=== PATIENT | female | born 1950 | race Hispanic/Latino ===

== ENCOUNTER → 2018-10-23 | Outpatient (CLI) | payer MEDICARE | END | disposition home or self-care (01) | LOC: RAH 13:23 | PROVIDERS: ATTEND Family Medicine | DX: G31.84 Mild cognitive impairment of uncertain or unknown etiology (principal) | CPT/HCPCS: 70450 ==

== ENCOUNTER 2019-10-04 15:28 | Inpatient (IN) | payer MEDICARE ==
[~2019-10-04] VITALS: Ht 152.4 cm; Wt 68.6 kg
[2019-10-04 16:35] LABS: BASOPHILS % (AUTO) 0.2 % (0.0-5.0); LYMPHOCYTES % (AUTO) 13.9 % (21.0-51.0); MEAN CORPUSCULAR HEMOGLOBIN 29.7 pg (27.0-33.0); MEAN CORPUSCULAR HGB CONC 34.2 g/dL (32.0-36.0); MONOCYTES % (AUTO) 9.5 % (3.0-13.0); PLATELET COUNT (AUTO) 233 K/uL (130-400); RED BLOOD CELL COUNT(AUTO) 4.37 MIL/uL (4.00-5.50); RED CELL DISTRIBUTION WIDTH 11.9 % (11.0-15.5); WHITE BLOOD COUNT (AUTO) 5.3 K/uL (4.8-10.8)
[2019-10-04 16:57] LABS: ALBUMIN 3.1 g/dL (3.5-5.0); BILIRUBIN,TOTAL 0.6 mg/dL (0.2-1.0); TOTAL PROTEIN, SERUM 7.6 g/dL (6.0-8.3)
[2019-10-04 17:07] LABS: POTASSIUM 3.7 mmol/L (3.5-5.1)
[2019-10-04 17:37] LABS: APPEARANCE,URINE Cloudy (CLEAR); BILIRUBIN,URINE Negative (NEGATIVE); COLOR,URINE Dark Yellow (YELLOW); GLUCOSE, URINE (UA) Negative (NEGATIVE); KETONES,URINE 40 mg/dL (NEGATIVE); LEUKOCYTE ESTERASE ,URINE Trace (NEGATIVE); NITRATE,URINE Negative (NEGATIVE); OCCULT BLOOD,URINE Negative (NEGATIVE); PH,URINE 5.5 (5.0-8.0); PROTEIN,URINE POS 2+ mg/dL (NEGATIVE)
[2019-10-04 18:19] LABS: BACTERIA,URINE Few /HPF (None Seen); MUCUS,URINE Few LPF (None Seen); SQUAMOUS EPITHELIAL CELL,UR Moderate /HPF (0-2)
[2019-10-04] MEDS ORDERED: ASPIRIN 325MG EC TAB 325 MG TABLET.DR PO SCH (19:00)
[2019-10-04] MEDS ORDERED: ASPIRIN 325 MG TABLET ONE (19:19)
[2019-10-04 20:02] LABS: INR 0.88 (0.85-1.15); PROTHROMBIN TIME 9.5 SEC (9.6-11.6)
[2019-10-04] MEDS ORDERED: SODIUM CHLORIDE 0.9% 1000ML 1,000 ML IV SCH (20:07)
[2019-10-04 20:12] LABS: CRP QUANTITATIVE 47.6 mg/L (0.00-9.0)
[2019-10-04] MEDS ORDERED: ONDANSETRON HCL 4 MG/2 ML VIAL IV PRN (20:15)
[2019-10-04] MEDS ORDERED: ACETAMINOPHEN 325 MG TAB PO PRN (20:15)
[2019-10-04] MEDS ORDERED: DIPHENHYDRAMINE HCL 25 MG CAPSULE PO PRN (20:15)
[2019-10-04] MEDS ORDERED: NITROGLYCERIN 0.4 MG SL TAB SL PRN (20:15)
[2019-10-04 20:44] LABS: CREATINE KINASE, TOTAL 111 U/L (21-232); MYOGLOBIN 75 ng/mL (10-92); TROPONIN I < 0.04 ng/mL (0.00-0.06)
[2019-10-04] MEDS ORDERED: IOHEXOL-350 75 ML VIAL IV ONE (21:51)
[2019-10-04] MEDS ORDERED: FAMOTIDINE/PF 20 MG/2 ML VIAL IV ONE (21:54)
[2019-10-05 00:43] LABS: CREATINE KINASE, TOTAL 157 U/L (21-232); TROPONIN I < 0.04 ng/mL (0.00-0.06)
[2019-10-05 01:22] LABS: MYOGLOBIN 79 ng/mL (10-92)
[2019-10-05] MEDS ORDERED: AZITHROMYCIN 500MG+NS 250ML 250 ML IV ONE (03:06)
[2019-10-05 06:18] LABS: HEMATOCRIT 34.2 % (36-48); MEAN CORPUSCULAR HEMOGLOBIN 29.8 pg (27.0-33.0); MEAN CORPUSCULAR HGB CONC 34.2 g/dL (32.0-36.0); MEAN CORPUSCULAR VOLUME 87.2 fL (79-99); PLATELET COUNT (AUTO) 237 K/uL (130-400); RED BLOOD CELL COUNT(AUTO) 3.92 MIL/uL (4.00-5.50); RED CELL DISTRIBUTION WIDTH 11.9 % (11.0-15.5)
[2019-10-05 06:42] LABS: BAND NEUTROPHILS % (MANUAL) 8 % (0-2); LYMPHOCYTES % (MANUAL) 28 % (22-44); MONOCYTES % (MANUAL) 8 % (2-9); SEGMENTED NEUTROPHILS % 56 % (40-70)
[2019-10-05 06:43] LABS: MAN.DIFF COMMENT-IMPRESSION MANUAL DIFFERENTIAL; PLATELET MORPHOLOGY COMMENT ADEQUATE
[2019-10-05 06:50] LABS: CHOLESTEROL 113 mg/dL (<200); HDL CHOLESTEROL 38 mg/dL (35-85); LDL DIRECT 46 mg/dL (0-99); TRIGLYCERIDES 125 mg/dL (30-200)
[2019-10-05 06:54] LABS: ALBUMIN 2.7 g/dL (3.5-5.0); CREATININE 0.9 mg/dL (0.5-1.5); CRP QUANTITATIVE 33.9 mg/L (0.00-9.0); MAGNESIUM 2.4 mg/dL (1.80-2.40); POTASSIUM 3.5 mmol/L (3.5-5.1); TOTAL PROTEIN, SERUM 6.3 g/dL (6.0-8.3)
[2019-10-05 07:26] LABS: BILIRUBIN,TOTAL 0.3 mg/dL (0.2-1.0)
[2019-10-05] MEDS: FAMOTIDINE 20MG TAB 20 MG TAB PO SCH (09:00)
[2019-10-05] MEDS: ASPIRIN 81MG TAB.CHEW PO SCH (09:00)
[2019-10-05] MEDS: ENOXAPARIN SODIUM 30 MG/0.3 ML SQ SCH (09:00)
[2019-10-05] MEDS ORDERED: ENOXAPARIN SODIUM 30 MG/0.3 ML SQ ONE (09:42)
[2019-10-05] MEDS ORDERED: ASPIRIN 81MG TAB.CHEW ONE (09:42)
[2019-10-05] MEDS ORDERED: FAMOTIDINE/PF 20 MG/2 ML VIAL IV ONE (09:42)
[2019-10-05] MEDS ORDERED: ALBUTEROL INHALER 90MCG/INH IH ONE (13:28)
--- NOTE | 2019-10-05 16:12 | NUR ---
INITIAL SW spoke with patient's daughter, Mignon Collins, [phone]. Patient lives with daughter. She has no home health but does have PHC with [facility] 22 hours a week. Granddaughter is provider. Patient has no DME. She needs help with ADL's and doesn't drive. PCP is Dr. Martinez. Pharmacy is [facility]. DCP is home. Addendum: 10/05/19 at 1616 by AJYCE DSOUZA SS Amended: Links added.
[2019-10-05 21:33] VITALS: BP 117/80
[2019-10-05 23:07] VITALS: BP 101/63
[2019-10-06] MEDS: AZITHROMYCIN 500MG+NS 250ML 250 ML IV SCH ×2 (03:00→05:49)
[2019-10-06 03:08] VITALS: BP 123/65
--- NOTE | 2019-10-06 04:00 | NUR ---
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
[2019-10-06] MEDS ORDERED: denies home meds (04:28)
--- NOTE | 2019-10-06 04:55 | NUR ---
AGUSTIN ROTATING FIELD ASSEMBLER RETURNED phone call informed of positive blood cultures gram positive cocci anerobic 2/2 sets
[2019-10-06] MEDS: ZOSYN 3.375GM+NS 50ML 50 ML IV SCH ×3 (05:47→20:32)
[2019-10-06 05:57] LABS: BASOPHILS % (AUTO) 0.2 % (0.0-5.0); EOSINOPHILS % (AUTO) 0.2 % (0.0-8.0); HEMATOCRIT 34.3 % (36-48); LYMPHOCYTES % (AUTO) 21.9 % (21.0-51.0); MEAN CORPUSCULAR HEMOGLOBIN 29.3 pg (27.0-33.0); MEAN CORPUSCULAR HGB CONC 33.5 g/dL (32.0-36.0); MEAN CORPUSCULAR VOLUME 87.3 fL (79-99); MONOCYTES % (AUTO) 9.8 % (3.0-13.0); NEUTROPHILS % (AUTO) 67.5 % (40.0-77.0); PLATELET COUNT (AUTO) 251 K/uL (130-400); RED BLOOD CELL COUNT(AUTO) 3.93 MIL/uL (4.00-5.50); RED CELL DISTRIBUTION WIDTH 11.9 % (11.0-15.5); WHITE BLOOD COUNT (AUTO) 4.6 K/uL (4.8-10.8)
[2019-10-06 06:05] LABS: CREATININE 0.7 mg/dL (0.5-1.5); CRP QUANTITATIVE 54.5 mg/L (0.00-9.0); POTASSIUM 3.4 mmol/L (3.5-5.1)
[2019-10-06 07:00] VITALS: BP 114/67
[2019-10-06] MEDS: ENOXAPARIN SODIUM 30 MG/0.3 ML SQ SCH (07:56)
[2019-10-06] MEDS: FAMOTIDINE 20MG TAB 20 MG TAB PO SCH (07:56)
[2019-10-06] MEDS: ASPIRIN 81MG TAB.CHEW PO SCH (07:56)
[2019-10-06] MEDS: ACETAMINOPHEN 325 MG TAB PO PRN ×2 (07:58→20:33)
[2019-10-06] MEDS ORDERED: POTASSIUM CHLORIDE 20 MEQ ERTAB PO SCH (09:15)
[2019-10-06 11:00] VITALS: BP 108/53
[2019-10-06] MEDS ORDERED: POTASSIUM CHLORIDE 20 MEQ ERTAB PO ONE (15:49)
[2019-10-06 16:00] VITALS: BP 107/61
[2019-10-06] MEDS ORDERED: GUAIFENESIN-DM 200/20 MG 10 ML PO PRN (16:45)
[2019-10-06 19:18] VITALS: BP_SYST 123
[2019-10-07] VITALS (7 sets, daily range): BP systolic 99–140; BP diastolic 56–77
[2019-10-07] MEDS: ZOSYN 3.375GM+NS 50ML 50 ML IV SCH ×3 (03:45→20:09)
[2019-10-07] MEDS: AZITHROMYCIN 500MG+NS 250ML 250 ML IV SCH (03:45)
[2019-10-07 05:11] LABS: BASOPHILS % (AUTO) 0.3 % (0.0-5.0); EOSINOPHILS % (AUTO) 1.6 % (0.0-8.0); HEMATOCRIT 34.6 % (36-48); MEAN CORPUSCULAR HGB CONC 33.8 g/dL (32.0-36.0); MEAN CORPUSCULAR VOLUME 88.7 fL (79-99); MONOCYTES % (AUTO) 5.5 % (3.0-13.0); NEUTROPHILS % (AUTO) 67.8 % (40.0-77.0); PLATELET COUNT (AUTO) 267 K/uL (130-400); RED CELL DISTRIBUTION WIDTH 11.9 % (11.0-15.5); WHITE BLOOD COUNT (AUTO) 3.8 K/uL (4.8-10.8)
[2019-10-07 05:18] LABS: CREATININE 0.7 mg/dL (0.5-1.5); CRP QUANTITATIVE 78.9 mg/L (0.00-9.0); POTASSIUM 3.7 mmol/L (3.5-5.1)
[2019-10-07] MEDS: FAMOTIDINE 20MG TAB 20 MG TAB PO SCH (08:09)
[2019-10-07] MEDS: ASPIRIN 81MG TAB.CHEW PO SCH (08:09)
[2019-10-07] MEDS: ENOXAPARIN SODIUM 30 MG/0.3 ML SQ SCH (08:09)
--- NOTE | 2019-10-07 08:30 | NUR ---
ASSESSMENT PT IS AAOX3 DENIES CP DENIES NV DENIES SOB WHILE AT REST, BREATHING PATTERN IS EVEN AND UNLABORED, ON O2 VIA NC. AM MEDS GIVEN, CALL LIGHT WITHIN REACH.
[2019-10-07] MEDS ORDERED: ENOXAPARIN SODIUM 1 MG/KG SQ SCH (09:00)
[2019-10-07] MEDS: METHYLPREDNISOLONE SOD SUCC 40MG/ML 1ML IVP SCH ×2 (09:10→20:09)
[2019-10-07] MEDS: ENOXAPARIN SODIUM 80 MG/0.8 ML SQ SCH (09:11)
--- NOTE | 2019-10-07 13:00 | NUR ---
DR Arguello AND DAVE ARDON ROUNDED
[2019-10-08] VITALS (7 sets, daily range): BP systolic 112–134; BP diastolic 62–74
[2019-10-08] MEDS: AZITHROMYCIN 500MG+NS 250ML 250 ML IV SCH (02:51)
[2019-10-08] MEDS: ZOSYN 3.375GM+NS 50ML 50 ML IV SCH ×3 (06:00→20:53)
[2019-10-08 07:20] LABS: CREATININE 0.6 mg/dL (0.5-1.5); CRP QUANTITATIVE 62.5 mg/L (0.00-9.0); POTASSIUM 3.7 mmol/L (3.5-5.1)
[2019-10-08 08:53] LABS: LYMPHOCYTES % (MANUAL) 1 % (22-44); MONOCYTES % (MANUAL) 3 % (2-9); SEGMENTED NEUTROPHILS % 96 % (40-70)
[2019-10-08 08:54] LABS: MAN.DIFF COMMENT-IMPRESSION BP; PLATELET MORPHOLOGY COMMENT ADEQUATE
[2019-10-08 08:57] LABS: HEMATOCRIT 34.8 % (36-48); MEAN CORPUSCULAR HEMOGLOBIN 29.2 pg (27.0-33.0); MEAN CORPUSCULAR HGB CONC 33.3 g/dL (32.0-36.0); MEAN CORPUSCULAR VOLUME 87.7 fL (79-99); PLATELET COUNT (AUTO) 341 K/uL (130-400); RED BLOOD CELL COUNT(AUTO) 3.97 MIL/uL (4.00-5.50); RED CELL DISTRIBUTION WIDTH 11.9 % (11.0-15.5); WHITE BLOOD COUNT (AUTO) 5.1 K/uL (4.8-10.8)
[2019-10-08] MEDS: FAMOTIDINE 20MG TAB 20 MG TAB PO SCH (09:00)
[2019-10-08] MEDS: ASPIRIN 81MG TAB.CHEW PO SCH (10:22)
[2019-10-08] MEDS: METHYLPREDNISOLONE SOD SUCC 40MG/ML 1ML IVP SCH ×2 (10:23→20:53)
[2019-10-08] MEDS: ENOXAPARIN SODIUM 80 MG/0.8 ML SQ SCH (10:24)
[2019-10-09] MEDS: AZITHROMYCIN 500MG+NS 250ML 250 ML IV SCH (04:05)
[2019-10-09 04:35] VITALS: BP 114/63
[2019-10-09 05:42] LABS: HEMATOCRIT 34.6 % (36-48); MEAN CORPUSCULAR HEMOGLOBIN 30.1 pg (27.0-33.0); MEAN CORPUSCULAR HGB CONC 34.4 g/dL (32.0-36.0); MEAN CORPUSCULAR VOLUME 87.4 fL (79-99); PLATELET COUNT (AUTO) 416 K/uL (130-400); RED BLOOD CELL COUNT(AUTO) 3.96 MIL/uL (4.00-5.50); RED CELL DISTRIBUTION WIDTH 11.8 % (11.0-15.5); WHITE BLOOD COUNT (AUTO) 7.7 K/uL (4.8-10.8)
[2019-10-09] MEDS: ZOSYN 3.375GM+NS 50ML 50 ML IV SCH ×3 (05:52→21:50)
[2019-10-09 08:00] VITALS: BP 130/74
[2019-10-09 08:45] LABS: BAND NEUTROPHILS % (MANUAL) 14 % (0-2); LYMPHOCYTES % (MANUAL) 16 % (22-44); MAN.DIFF COMMENT-IMPRESSION MANUAL DIFFERENTIAL; MONOCYTES % (MANUAL) 4 % (2-9); SEGMENTED NEUTROPHILS % 66 % (40-70)
[2019-10-09 08:46] LABS: PLATELET MORPHOLOGY COMMENT ADEQUATE
[2019-10-09] MEDS: METHYLPREDNISOLONE SOD SUCC 40MG/ML 1ML IVP SCH ×2 (10:28→21:50)
[2019-10-09] MEDS: ASPIRIN 81MG TAB.CHEW PO SCH (10:28)
[2019-10-09] MEDS: ENOXAPARIN SODIUM 80 MG/0.8 ML SQ SCH (10:28)
[2019-10-09] MEDS: FAMOTIDINE 20MG TAB 20 MG TAB PO SCH (10:28)
[2019-10-09 12:00] VITALS: BP 127/60
--- NOTE | 2019-10-09 13:29 | NUR ---
No covid test pending. No pulmonary MD consult at this time. Called MD to inform, MD did not answer waiting on return call.
[2019-10-09 15:30] VITALS: BP 127/71
[2019-10-09 20:00] VITALS: BP 135/78
[2019-10-10] VITALS: BP 135/75
[2019-10-10 04:00] VITALS: BP 131/70
[2019-10-10] MEDS: AZITHROMYCIN 500MG+NS 250ML 250 ML IV SCH (04:08)
[2019-10-10] MEDS: ZOSYN 3.375GM+NS 50ML 50 ML IV SCH (04:58)
[2019-10-10 08:30] VITALS: BP 133/72
[2019-10-10 09:55] LABS: BASOPHILS % (AUTO) 0.2 % (0.0-5.0); HEMATOCRIT 36.3 % (36-48); LYMPHOCYTES % (AUTO) 7.3 % (21.0-51.0); MEAN CORPUSCULAR HEMOGLOBIN 29.5 pg (27.0-33.0); MEAN CORPUSCULAR HGB CONC 33.6 g/dL (32.0-36.0); MEAN CORPUSCULAR VOLUME 87.7 fL (79-99); MONOCYTES % (AUTO) 4.2 % (3.0-13.0); NEUTROPHILS % (AUTO) 87.1 % (40.0-77.0); PLATELET COUNT (AUTO) 428 K/uL (130-400); RED BLOOD CELL COUNT(AUTO) 4.14 MIL/uL (4.00-5.50); RED CELL DISTRIBUTION WIDTH 12.2 % (11.0-15.5); WHITE BLOOD COUNT (AUTO) 5.9 K/uL (4.8-10.8)
[2019-10-10] MEDS: METHYLPREDNISOLONE SOD SUCC 40MG/ML 1ML IVP SCH (10:58)
[2019-10-10] MEDS: ASPIRIN 81MG TAB.CHEW PO SCH (10:59)
[2019-10-10] MEDS: FAMOTIDINE 20MG TAB 20 MG TAB PO SCH (10:59)
[2019-10-10] MEDS: ENOXAPARIN SODIUM 80 MG/0.8 ML SQ SCH (10:59)
--- NOTE | 2019-10-10 13:34 | NUR ---
Pt discharged from unit. Provided discharge instructions to patients daughter Mignon over the phone. Educated on discharge medication and pt daughter verbalized understanding. Provided pt with next dose medication for discharge meds and pt daughter verbalized understanding. Educated for pt to quarantine x14 days and to wear mask at all times while in home with others. Gave education information for SOB, pneumonia, and COVID. IV and tele removed. Pt transported downstairs via wheelchair. All belongings returned to pt. No s/s of distress noted upon exit from unit.
== END 2019-10-10 13:30 | disposition home or self-care (01) | DRG 177 ==
LOC: EDH 15:28 → EDHIP 18:55 → 2AH 10-05 20:50
PROVIDERS: ADMIT Family Medicine; ATTEND Family Medicine
DX: U07.1 COVID-19 (principal); J12.89 Other viral pneumonia; E87.1 Hypo-osmolality and hyponatremia; K44.9 Diaphragmatic hernia without obstruction or gangrene; I51.7 Cardiomegaly; K80.20 Calculus of gallbladder without cholecystitis without obstruction; R79.89 Other specified abnormal findings of blood chemistry; R82.71 Bacteriuria; M47.815 Spondylosis without myelopathy or radiculopathy, thoracolumbar region
CPT/HCPCS: 36415; 71045; 71275; 74176; 80048; 80053; 80061; 81001; 82550; 82728; 83615; 83735; 83874; 84145; 84478; 84484; 85025; 85378; 85384; 85610; 86140; 87040; 87071; 87077; 87088; 87186; 87205; 87804; 93005; 93970; 94760; G0378; J0456; J1650; J2543; J2920; J3490; J7030; Q9967; U0003

== ENCOUNTER 2020-03-20 15:46 | Emergency (ER) | payer MEDICARE ==
[~2020-03-20 15:46] MED LIST: denies home meds
== END 2020-03-20 17:02 | disposition home or self-care (01) ==
LOC: EDH 15:46
DX: R05 Cough (principal); R06.02 Shortness of breath; Z20.828 Contact with and (suspected) exposure to other viral communicable diseases
CPT/HCPCS: 71045; 87804; 93005

== ENCOUNTER 2022-12-18 12:33 | Emergency (ER) | payer MEDICARE ==
[~2022-12-18] VITALS: Ht 152.4 cm; Wt 65.8 kg
[~2022-12-18 12:33] MED LIST changes: +AMOX-429 PO; +DICY20TA3 PO
[2022-12-18 13:29] VITALS: BP 163/71; PULSE 71; RESP 16; O2SAT 100
[2022-12-18] MEDS ORDERED: CEPH500T PO (15:54)
== END 2022-12-18 16:14 | disposition home or self-care (01) ==
LOC: EDH 12:33
DX: L60.2 Onychogryphosis (principal); L03.032 Cellulitis of left toe; E03.9 Hypothyroidism, unspecified; Z79.899 Other long term (current) drug therapy

== ENCOUNTER 2024-11-06 15:27 | Emergency (ER) | payer MEDICARE ==
[~2024-11-06] VITALS: Ht 149.9 cm; Wt 54.0 kg
[~2024-11-06 15:27] MED LIST changes: +CEPH500T PO
--- NOTE | 2024-11-06 15:50 | EKG ---
[facility] Test Date: 2024-11-06 Test Time: 15:46:52 Pat Name: GELY SHANNON Department: ED Room: Gender: F Hvac R Instructor: [id number] : 1950 Requested By: LORENZO CESPEDES Order Number: [id number] Reading MD: Bradley Carrasco Measurements Intervals [place] Rate: 55 P: 37 TX: 193 QRS: 0 QRSD: 94 T: 53 QT: 412 QTc: 393 Interpretive Statements Sinus rhythm Low voltage, extremity leads Compared to ECG 03/20/2020 15:44:52 Low QRS voltage now present Electronically Signed On 11-09-2024 10:45:28 CDT by Bradley Carrasco Please click the below link to view image of tracing.
--- NOTE | 2024-11-06 16:10 | HMCIMG ---
EXAM: CR Chest, 1 View. CLINICAL HISTORY: fluid overload COMPARISON: X-ray chest 03/20/2020 FINDINGS: LUNGS: The lungs show no infiltrate or other acute finding. PLEURAL SPACES: No evidence of pleural effusion or pneumothorax. MEDIASTINUM: The cardiomediastinal silhouette is within normal limits. BONES: No aggressive appearing osseous lesion seen. IMPRESSION: No acute cardiopulmonary pathology is evident. No significant change /[place]
[2024-11-06 16:11] LABS: IMMATURE GRANULOCYTE ABSOLUTE 0.02 K/uL (0-1); NUCLEATED RED BLOOD CELLS 0.0 % (0.0-0.19); PLATELET COUNT (AUTO) 228 K/uL (130-400); RED BLOOD CELL COUNT(AUTO) 3.69 MIL/uL (4.00-5.50); RED CELL DISTRIBUTION WIDTH 13.2 % (11.0-15.5); WHITE BLOOD COUNT (AUTO) 5.6 K/uL (4.8-10.8)
[2024-11-06 16:24] LABS: CREATININE 0.6 mg/dL (0.5-1.0); GLOMERULAR FILTR. RATE CALC 95.0 mL/min (>90); GLUCOSE,RANDOM 100.0 mg/dL (70-105); SODIUM SERUM 142.0 mmol/L (136-145); UREA NITROGEN, BLOOD 16.0 mg/dL (7-18)
[2024-11-06 16:25] LABS: INR <= 0.93 (0.85-1.15)
[2024-11-06 16:31] LABS: ASPARTATE AMINOTRANSFERASE 12.0 U/L (10-37); CREATINE KINASE, TOTAL 43.0 U/L (21-232); TOTAL PROTEIN, SERUM 5.7 g/dL (6.0-8.3)
--- NOTE | 2024-11-06 17:16 | HMCIMG ---
Exam: Ultrasound deep veins right lower extremity. History: Leg pain and swelling Comparison: Bilateral ultrasound venous exam 10/04/2019. Findings: Cain scale and color/doppler static images of the deep veins of the right lower extremity were submitted without a comparison exam. There is normal response to compression and augmentation maneuvers throughout the visualized deep veins of the right lower extremity to include the: common femoral vein, superficial femoral vein, popliteal vein, and posterior tibial vein Patent blood flow was detected with color/doppler imaging. No fluid collection or other abnormality is delineated. Impression: There is no right lower extremity deep venous thrombus formation. . /[place]
[2024-11-06 17:17] LABS: APPEARANCE,URINE CLEAR (CLEAR); GLUCOSE, URINE (UA) NEGATIVE (NEGATIVE); LEUKOCYTE ESTERASE ,URINE 500 Leu/uL (NEGATIVE); NITRATE,URINE NEGATIVE (NEGATIVE); OCCULT BLOOD,URINE NEGATIVE (NEGATIVE)
[2024-11-06 17:21] LABS: ADD UA MICROSCOPIC YES
[2024-11-06 17:23] LABS: SQUAMOUS EPITHELIAL CELL,UR RARE /HPF (0-2)
--- NOTE | 2024-11-06 18:22 | ERN ---
General Chief Complaint: LOWER EXTREMITY EDEMA Stated Complaint: BILATERAL LOWER EXTREMITY EDEMA Time Seen by MD: 15:30 History of Present Illness Initial Comments 73-year-old female who presents for left lower leg swelling. She reports that she has noticed over the last two days that are left leg has been swelling. He also has some mild swelling on the right but it is more in the left. She denies any cough, dyspnea, paroxysmal nocturnal dyspnea, abdominal pain or swelling, urinary changes, or any other symptom. He has never had this before. Allergies: Coded Allergies: No Known Drug Allergies (Verified Allergy, Unknown, 10/04/19) Home Meds Active Scripts Cephalexin (Cephalexin) 500 Mg Tablet, 500 MG PO [id number] for 7 Days, #28 TAB Prov:CECIL HERNANDEZ NP 12/18/22 Dicyclomine HCl (Dicyclomine HCl) 20 Mg Tablet, 20 MG PO QIDP PRN for ABDOMINAL PAIN, #20 TAB Prov:CLYDE ANTOINE MD 09/20/20 Amoxicillin/Potassium Clav (Augmentin 875-125 Tablet) 1 Each Tablet, 1 EACH PO BIDMEALS, #20 TAB Prov:CLYDE ANTOINE MD 09/20/20 Reported Medications [denies home meds] No Conflict Check 10/06/19 Past Medical History Past Medical History: Hypothyroid, Other Medical History Other: FATTY LIVER Past Surgical History: None Social History Social History: Lives with family ROS Dictation CONSTITUTIONAL: No chills, no fever, no weakness, no diaphoresis, no malaise. HEAD/FACE: No signs of trauma. EENT: No eye pain, no blurred vision, no tearing, no double vision, no ear pain, no ear discharge, no nose pain, no nasal congestion, no throat pain, no throat swelling, no mouth pain. RESPIRATORY: No cough, no orthopnea, no SOB, no stridor, no wheezing. CARDIOVASCULAR: No chest pain, no edema, no palpitations, no syncope. GASTROINTESTINAL/ABDOMINAL: No abdominal pain, no constipation, no diarrhea, no nausea, no vomiting. GENITOURINARY: No abnormal discharge, no dysuria, no frequent urination, no hematuria. No complaints of pain in the genitals. MUSCULOSKELETAL: Swelling INTEGUMENTARY: No change in color, no change in hair/nails, no dryness, no lesion, no lumps, no rash. NEUROLOGICAL/PSYCH: No anxiety, not depressed, no emotional problem, no headache, no numbness, no pre-existing deficit, no history of seizures, no tremors, no weakness. HEMATOLOGIC/LYMPHATIC: Not anemic, no history of blood clots, no apparent bleeding, no bruising, glands not swollen. All Systems Negative, Except as Noted. Physical Exam Physical Exam Dictation VITAL SIGNS: Reviewed. GENERAL APPEARANCE: Alert, oriented x3, no acute distress. HEAD AND FACE: Non-traumatic. EYES: PERRL, pink conjunctivas, eyelid no trauma, anterior chamber clear. EARS: Pinnas intact and no signs of trauma or erythema. Ear canals clear and no discharge. TMs no erythema. NOSE: No discharge, no bleeding. OROPHARYNX: Mouth normal, teeth no caries, tongue pink. Pharynx clear, no erythema. Tonsils no exudates, no abscesses noted. Mucous membrane moist. NECK: Supple, non-tender, no thyromegaly, no masses, no JVD, no bruits. BREAST: Deferred. CHEST: No tenderness, no crepitus, no paradoxical movement, no retractions. LUNGS: Clear, well-ventilated, symmetric, no rales, no wheezing, no rhonchi, no stridor, good breath sounds bilaterally. HEART: Regular rate, regular rhythm, no murmur, no gallops. VASCULAR: No peripheral edema. ABDOMEN: Soft, positive bowel sounds, nondistended, no guarding, nontender, no rebound, no masses no hepatomegaly, no splenomegaly, no Butts's sign, no hernias. RECTAL: Deferred. GENITAL: Deferred. NEUROLOGICAL: Normal speech, gross motor function intact, gross sensory function intact. MUSCULOSKELETAL: Neck nontender, full range of motion, back nontender, full range of motion. EXTREMITIES: Nontender, full range of motion. SKIN: Color pink, dry, no turgor, no rash, no lacerations, no abrasions, no contusions. LYMPHATICS: Deferred. Results Laboratory and Microbiology Lab and Micro Result Laboratory Tests Test 11/06/24 15:39 11/06/24 17:08 White Blood Count 5.6 K/uL (4.8-10.8) Red Blood Count 3.69 MIL/uL (4.00-5.50) L Hemoglobin 11.4 g/dL (12.0-16.0) L Hematocrit 34.3 % (36-48) L Mean Corpuscular Volume 93.0 fL (79-99) Mean Corpuscular Hemoglobin 30.9 pg (27.0-33.0) Mean Corpuscular Hemoglobin Concent 33.2 g/dL (32.0-36.0) Red Cell Distribution Width 13.2 % (11.0-15.5) Platelet Count 228 K/uL (130-400) Mean Platelet Volume 9.6 fL (7.5-10.5) Immature Granulocyte % (Auto) 0.4 % (0-1) Neutrophils (%) (Auto) 61.9 % (40.0-77.0) Lymphocytes (%) (Auto) 28.8 % (21.0-51.0) Monocytes (%) (Auto) 7.3 % (3.0-13.0) Eosinophils (%) (Auto) 1.2 % (0.0-8.0) Basophils (%) (Auto) 0.4 % (0.0-5.0) Neutrophils # (Auto) 3.5 K/uL (1.8-7.7) Lymphocytes # (Auto) 1.6 K/uL (1.0-4.8) Monocytes # (Auto) 0.4 K/uL (0.1-1.0) Eosinophils # (Auto) 0.07 K/uL (0.00-0.70) Basophils # (Auto) 0.02 K/uL (0.00-0.20) Absolute Immature Granulocyte (auto 0.02 K/uL (0-1) Nucleated Red Blood Cells 0.0 % (0.0-0.19) Prothrombin Time 9.9 SEC (9.6-11.6) Prothromb Time International Ratio <= 0.93 (0.85-1.15) Activated Partial Thromboplast Time 24.6 SEC (26.3-35.5) L Sodium Level 142 mmol/L (136-145) Potassium Level 4.0 mmol/L (3.5-5.1) Chloride Level 109 mmol/L (101-111) Carbon Dioxide Level 29 mmol/L (21-32) Blood Urea Nitrogen 16 mg/dL (7-18) Creatinine 0.6 mg/dL (0.5-1.0) Glomerular Filtration Rate Calc 95 mL/min (>90) Random Glucose 100 mg/dL (70-105) Total Calcium 8.2 mg/dL (8.5-10.1) L Magnesium Level 2.00 mg/dL (1.80-2.40) Total Bilirubin 0.2 mg/dL (0.2-1.0) Direct Bilirubin 0.1 mg/dL (0.0-0.3) Aspartate Amino Transf (AST/SGOT) 12 U/L (10-37) Alanine Aminotransferase (ALT/SGPT) 16 U/L (12-78) Alkaline Phosphatase 116 U/L (50-136) Total Creatine Kinase 43 U/L (21-232) # Troponin I High Sensitivity 11.9 ng/L (4-50) B-Type Natriuretic Peptide 75 pg/mL (0-100) Total Protein 5.7 g/dL (6.0-8.3) L Albumin 3.0 g/dL (3.5-5.0) L Urine Color LIGHT-YELLOW (YELLOW) Urine Appearance CLEAR (CLEAR) Urine pH 5.5 (5.0-8.0) Urine Specific [place] 1.023 (1.001-1.031) Urine Protein NEGATIVE mg/dL (NEGATIVE) Urine Glucose (UA) NEGATIVE mg/dL (NEGATIVE) Urine Ketones NEGATIVE mg/dL (NEGATIVE) Urine Occult Blood NEGATIVE (NEGATIVE) Urine Nitrate NEGATIVE (NEGATIVE) Urine Bilirubin NEGATIVE mg/dL (NEGATIVE) Urine Urobilinogen 0.2 mg/dL (0.2-1.0) Urine Leukocyte Esterase 500 [place]/uL (NEGATIVE) H Urine RBC 0-1 /HPF (0-1) Urine WBC 11-25 /HPF (0-1) H Urine Squamous Epithelial Cells RARE /HPF (0-2) Urine Bacteria RARE /HPF (None Seen) MDM CC: lower extremity edema Historian: patient Comorbidities: Hypothyroid, fatty liver Limitations by social determinants of health: None Differential diagnosis: Heart failure, liver disease, kidney disease, benign swelling, other. Vital signs are stable, clinical exam shows a little bit of swelling 2+ on the left 1+ on the right lung sounds are clear abdomen soft nontender nondistended. Labs (independently ordered and interpreted by me): No leukocytosis, mild normocytic anemia hemoglobin 11.4. Coags are stable. Metabolic panel is unre markable, magnesium stable, liver enzymes are stable, CK is stable, troponin stable, BNP normal, total protein decreased 5.7 albumin 3.0. Urinalysis shows normal specific gravity, no protein. There are some leuk esterase but she is currently asymptomatic unlikely related to her symptoms The EKG shows a sinus rhythm rate of 55 with a normal axis good R-wave progression intervals are stable no STEMI. Independently interpreted by me. DVT study per radiology read shows no signs of DVT Chest x-ray (independently interpreted by me): No cardiomegaly pleural effusions or focal infiltrates. Differential diagnosis includes chronic venous insufficiency, hypoalbuminemia, possibly a medication side effect or any of the other obstructive process. I do not see any life threats at this time patient can be worked up as an outpatient. I will recommend the patient wears compression stockings encourage daily leg elevation daily monitor sodium and protein intake. Do not see any indication for diuretics. No indication for further treatment or studies at this time. Family agrees with the plan. ED Course Orders Procedure Category Date Status Time Cardiac Panel LAB 11/06/24 Complete 15:37 Cbc With Differential LAB 11/06/24 Complete 15:37 Basic Metabolic Panel LAB 11/06/24 Complete 15:37 Magnesium LAB 11/06/24 Complete 15:37 Prothrombin Time With LAB 11/06/24 Complete INR 15:37 Partial LAB 11/06/24 Complete Thromboplastin Time 15:37 Urinalysis Profile LAB 11/06/24 Complete 15:37 Hepatic Function Panel LAB 11/06/24 Complete 15:37 B-Type Natriuretic LAB 11/06/24 Complete Peptide 15:37 Chest 1vw RAD 11/06/24 Resulted 15:37 12 Lead Ekg Tracing- EKG 11/06/24 Complete Technical 15:37 Us Venous Doppler US 11/06/24 Resulted Unilateral 16:27 Culture Urine HORACE 11/06/24 Logged 17:22 Vital Signs Date Time Temp Pulse Resp B/P (MAP) Pulse Ox O2 Delivery O2 Flow Rate FiO2 11/06/24 17:44 62 18 132/59 99 Room Air* 0 11/06/24 16:30 98.6 48 18 127/57 99 Room Air* 0 21 11/06/24 15:36 57 18 146/66 99 Room Air* 0 11/06/24 15:28 97.7 61 14 101/61 98 Room Air 0 DX & DISP Disposition: Discharge Departure Impression: Primary Impression: Dependent edema Condition: Stable Additional Instructions: You have dependent edema. There are no dangerous causes of your swelling today. Your symptoms are most consistent with chronic venous insufficiency which is common with age. There are no signs of blood clots, heart failure, liver disease, or kidney disease. Your EKG is stable. Your chest x-ray is unremarkable. The ultrasound of your leg is unremarkable. Your lab work (CBC with differential, coagulopathy studies, basic metabolic panel, magnesium level, liver enzymes, CK, troponin, BNP, and urinalysis) is stable. I recommend wearing compression stockings as tolerated. Elevate your leg above the heart daily for at least 30 minutes. Reduce sodium intake. Avoid salty foods. Ensure adequate nutrition and maintain a balanced diet. Walk regularly and avoid standing or sitting for long periods without moving. I recommend he follow up with the primary doctor. If your symptoms do not improve, you may need further studies or referrals. Referrals: CRISTINA JAMISON MD (PCP) LORENZO CESPEDES DO Nov 06, 2024 18:22
[2024-11-06 18:24] VITALS: BP 118/51; PULSE 62; RESP 18; TEMP 98.6; O2SAT 99
== END 2024-11-06 18:32 | disposition home or self-care (01) ==
LOC: EDH 15:27
DX: R60.0 Localized edema (principal); E03.9 Hypothyroidism, unspecified; K76.0 Fatty (change of) liver, not elsewhere classified; Z79.899 Other long term (current) drug therapy
CPT/HCPCS: 36415; 71045; 80048; 80076; 81001; 82550; 83735; 83880; 84484; 85025; 85610; 85730; 87086; 93005; 93971; 99285